=== PATIENT | male | born 1975 | race Two or more races ===

== ENCOUNTER 2018-12-20 09:52 | Inpatient (IN) | payer BC ==
[~2018-12-20] VITALS: Ht 30.5 cm; Wt 81.4 kg
[2018-12-20] MEDS ORDERED: ACETAMINOPHEN 325 MG TAB PO PRN (10:15)
[2018-12-20] MEDS: SODIUM CHLORIDE 0.9% 1,000 ML IV SCH ×2 (10:15→23:12)
[2018-12-20] MEDS ORDERED: ONDANSETRON HCL 4 MG/2 ML VIAL IV PRN (10:15)
[2018-12-20 10:20] VITALS: BP 138/88
[2018-12-20 10:30] VITALS: BP 138/88
[2018-12-20] MEDS ORDERED: LINEZOLID 600MG/300ML 300 ML IV ONE (11:15)
[2018-12-20 11:26] LABS: Basophils # (auto) 0 uL; Basophils % (auto) 0.2 % (0.0-2.0); Eosinophils # (auto) 0.4 uL; Hematocrit 46.9 % (41.0-53.0); Hemoglobin 15.9 g/dL (13.5-17.5); Lymphocytes # (auto) 1.4 uL; Lymphocytes % (auto) 19.9 % (10.0-50.0); Mean Corpuscular Hemoglobin 30.3 pg (28.0-32.0); Mean Corpuscular Hgb Conc. 33.9 g/dL (32.0-36.0); Mean Corpuscular Volume 89.3 fL (80.0-100.0); Monocytes # (auto) 0.5 uL; Monocytes % (auto) 7.1 % (0.0-12.0); Neutrophils # (auto) 4.8 uL; Neutrophils % (auto) 66.8 % (37.0-80.0); Platelet Count (auto) 166 10^3/uL (140-450); Red Blood Cells 5.25 10^6/uL (4.5-5.90); Red Cell Distribution Width 12.7 % (11.8-14.3); White Blood Cell 7.3 10^3/uL (4.4-10.8)
[2018-12-20 11:32] LABS: Albumin 4.4 g/dL (3.4-5.0); Calcium 8.5 mg/dL (8.5-10.1); Potassium 3.9 mmol/L (3.5-5.1)
[2018-12-20 11:38] LABS: BUN/Creatinine Ratio 20.4; Bilirubin, Total 1.3 mg/dL (0.2-1.0); Total Protein 7.2 g/dL (6.4-8.2)
[2018-12-20 13:00] VITALS: BP 138/88
--- NOTE | 2018-12-20 13:00 | NUR ---
WOUND CARE NOTE: Wound care in to see patient per wound care request regarding "Staph Infection, L leg Cellulitis" that are noted present on admission. Patient is 48 years old male with admitting diagnosis of Staph Infection. Patient is resting in bed in Rm[address]. He's awake, alert and fully oriented. Patient denies any pain at this time. He's ambulatory and self turn and reposition. Skin assessment done with the assistance of patient's nurse, CAROLYN Malave. Noted patient has multi/ scattered small, rashes, red lesions to BUE and BLE. His Lt lower leg is worse and has open draining lesions, with bright red nathan wound with minimal serous drainage, no odor noted. Wound culture specimen sent by bedside nurse to lab for processing. Patient reported that he noted "tiny carbuncle like, and ulcerated in about seven to ten days". Cleansed patient's Lt lower leg wounds with wound cleanser, patted dry with sterile gauze. Photograph taken for reference. Applied Thera honey gauze, covered wound with absorbent pad, wrapped with Kerlix and secured with tape as MD ordered. Patient tolerated well. RECOMMENDATION: EOD/PRN dressing change to L lower leg wounds per MD order, redistribute pressure points with pillows, elevate affected extremity on pillows, Continue monitoring by Wound care while patient is hospitalized. Addendum: 12/20/18 at 1638 by Arlette Conklin RN Amended: Links added.
[2018-12-20] MEDS ORDERED: PIPERACILLIN-TAZO 4.5GM 100 ML IV ONE (15:30)
[2018-12-20] MEDS ORDERED: GADOPENTETATE DIMEGLUMINE (10MMOL/20 ML) VIAL IV ONE (15:45)
[2018-12-20 16:47] VITALS: BP 127/78
[2018-12-20] MEDS: LINEZOLID 600MG/300ML 300 ML IV SCH (21:03)
[2018-12-20] MEDS: diphenhdrAMINE HCL 25 MG CAP PO PRN (21:04)
[2018-12-20 22:00] VITALS: BP 107/65
[2018-12-20] MEDS: PIPERACILLIN-TAZO 4.5GM 100 ML IV SCH (23:12)
[2018-12-21 05:00] VITALS: BP 111/65
[2018-12-21] MEDS: PIPERACILLIN-TAZO 4.5GM 100 ML IV SCH ×2 (05:55→14:30)
[2018-12-21 09:00] VITALS: BP 115/74
--- NOTE | 2018-12-21 09:00 | NUR ---
SURGICAL CONSULT TO BE DONE BY Reese LORA PER MD REYES. WILL FOLLOW THROUGH WITH NEW ORDERS.
[2018-12-21] MEDS: LINEZOLID 600MG/300ML 300 ML IV SCH ×2 (10:09→22:24)
--- NOTE | 2018-12-21 10:15 | NUR ---
CALLED [employer] FOR 2MM PUNCH KIT PER MD LORA REQUEST, AWAITING CALL BACK.
--- NOTE | 2018-12-21 11:30 | NUR ---
SPOKE WITH [employer] JESUSITA, STATED PUNCH KIT (PER MD REQUEST) WOULD NEED TO BE ORDERED ON SUNDAY. WILL INFORM NEXT SHIFT.
--- NOTE | 2018-12-21 14:20 | NUR ---
MD RAZA UPDATED ON PATIENT STATUS VIA TELEPHONE. TRANSFERRED TO PATIENT ROOM PHONE PER REQUEST TO SPEAK WITH PATIENT. NO NEW ORDERS. WILL CONTINUE CARE.
--- NOTE | 2018-12-21 14:40 | NUR ---
WOUND CARE ORDERED PATIENT TOLERATED WELL. NO S/S OF DISTRESS. WILL CONTINUE CARE.
[2018-12-21] MEDS: SODIUM CHLORIDE 0.9% 1,000 ML IV SCH (14:51)
[2018-12-21 15:10] LABS: Urine Bacteria NONE SEEN /hpf (None Seen); Urine Blood Negative /uL (Negative); Urine Specific Gravity 1.009 (1.001-1.035); Urine WBC 1 /hpf (0 - 3)
[2018-12-21] MEDS: diphenhdrAMINE HCL 25 MG CAP PO PRN (16:46)
[2018-12-21 17:00] VITALS: BP 106/61
--- NOTE | 2018-12-21 19:06 | NUR ---
CLOSING NOTE ENDORSED CARE TO [employer] CRANE OPERATOR RN. PATIENT IN BED LOW LOCK POSITION, CALL LIGHT IN REACH. NO S/S OF DISTRESS.
--- NOTE | 2018-12-21 19:50 | NUR ---
TALKED TO DR. REYES. STOPPED THE ZOSYN. PT STATED THAT HE FELT ITCHY WITH THE ZOSYN.
[2018-12-21 21:15] VITALS: BP 124/73
[2018-12-22] MEDS: SODIUM CHLORIDE 0.9% 1,000 ML IV SCH (05:09)
[2018-12-22 05:22] VITALS: BP 106/66
[2018-12-22 06:07] LABS: Basophils # (auto) 0 uL; Basophils % (auto) 0.3 % (0.0-2.0); Eosinophils # (auto) 0.5 uL; Eosinophils % (auto) 8.4 % (0.0-7.0); Hematocrit 43.2 % (41.0-53.0); Lymphocytes # (auto) 1.7 uL; Lymphocytes % (auto) 30.1 % (10.0-50.0); Mean Corpuscular Hemoglobin 30.7 pg (28.0-32.0); Mean Corpuscular Hgb Conc. 34.7 g/dL (32.0-36.0); Mean Corpuscular Volume 88.3 fL (80.0-100.0); Monocytes # (auto) 0.4 uL; Monocytes % (auto) 7.6 % (0.0-12.0); Neutrophils % (auto) 53.6 % (37.0-80.0); Nucleated Red Blood Cells % 0.1 %; Platelet Count (auto) 137 10^3/uL (140-450); Red Blood Cells 4.89 10^6/uL (4.5-5.90); Red Cell Distribution Width 12.9 % (11.8-14.3); White Blood Cell 5.5 10^3/uL (4.4-10.8)
[2018-12-22 06:16] LABS: Albumin 3.6 g/dL (3.4-5.0); BUN/Creatinine Ratio 14.6; Calcium 8.3 mg/dL (8.5-10.1); Potassium 3.7 mmol/L (3.5-5.1)
[2018-12-22 06:18] LABS: Bilirubin, Total 0.7 mg/dL (0.2-1.0); Total Protein 6.2 g/dL (6.4-8.2)
[2018-12-22 08:26] VITALS: BP 114/70
[2018-12-22] MEDS: LINEZOLID 600MG/300ML 300 ML IV SCH (09:32)
--- NOTE | 2018-12-22 09:55 | NUR ---
SPOKE WITH MD LORA VIA TELEPHONE NEW ORDERS FOR LIDOCAINE 1%. ORDER READ BACK AND VERIFIED. WILL CONTINUE CARE.
[2018-12-22] MEDS ORDERED: LIDOCAINE 1% HCL (LOCAL ANESTH.) INJ 20ML MDV ID ONE (10:00)
[2018-12-22] MEDS ORDERED: LIDOCAINE 1% (LOCAL ANESTH.) PF 5ml SDV ONE (10:02)
--- NOTE | 2018-12-22 10:30 | NUR ---
SKIN BIOPSY CONSENTS SIGNED AND PLACED IN CHART. MD LORA AT BEDSIDE. LIDOCAINE ADMINISTERED BY . 2 BIOPSIES TAKEN FROM LEFT POWELL, 1 BIOPSY TAKEN FROM RIGHT CALF IN A STERILE MANNER. PATIENT TOLERATED WELL. NO S/S OF DISTRESS.
--- NOTE | 2018-12-22 10:45 | NUR ---
AMY AT BEDSIDE. NO NEW ORDERS. WILL CONTINUE CARE.
--- NOTE | 2018-12-22 11:00 | NUR ---
SKIN BIOPSY SENT TO LAB WITH PATHOLOGY REQUISITION, COPIES PLACED IN CHART.
[2018-12-22] MEDS ORDERED: predniSONE 20 MG TAB PO ONE (12:15)
[2018-12-22 12:17] VITALS: BP 114/70
--- NOTE | 2018-12-22 12:30 | NUR ---
Discharge instructions given as ordered. Encourage to follow up with PMD as instructed. All questions and concerns addressed. Patient verbalized understanding. Wound pictures taken. Medication reconciliation form completed and copy given to patient. IV removed with catheter intact, pressure dressing applied. Patient ambulated with steady gait to vehicle via wheelchair with all personal belongings, accompanied by friend. No distress noted at time of departure.
== END 2018-12-22 12:30 | disposition home or self-care (01) | DRG 603 ==
LOC: CENTRAL 09:52
PROVIDERS: ADMIT Internal Medicine; ATTEND Internal Medicine
PROC: 0HBLXZX Excision of Left Lower Leg Skin, External Approach, Diagnostic (ICD-10-PCS; principal; 2018-12-22)
PROC: 0HBKXZX Excision of Right Lower Leg Skin, External Approach, Diagnostic (ICD-10-PCS; 2018-12-22)
DX: L03.116 Cellulitis of left lower limb (principal); M34.9 Systemic sclerosis, unspecified; S80.862A Insect bite (nonvenomous), left lower leg, initial encounter; W57.XXXA Bitten or stung by nonvenomous insect and other nonvenomous arthropods, initial encounter; L27.0 Generalized skin eruption due to drugs and medicaments taken internally; L95.9 Vasculitis limited to the skin, unspecified
CPT/HCPCS: 36415; 73718; 80053; 81001; 83520; 85025; 86225; 86235; 86256; 87040; 87077; 87081; 87186; 87205; 93306; 93971; G0378; J2543

== ENCOUNTER → 2020-07-08 | Outpatient (CLI) | payer BC | END | disposition home or self-care (01) | LOC: LAB 13:17 | PROVIDERS: ATTEND Internal Medicine | DX: Z20.828 Contact with and (suspected) exposure to other viral communicable diseases (principal) | CPT/HCPCS: 36415; 87426; C9803; U0003 ==

== ENCOUNTER 2023-08-07 10:00 | Inpatient (IN) | payer BC ==
[~2023-08-07] VITALS: Ht 175.3 cm; Wt 94.1 kg
[2023-08-07 12:46] VITALS: BP 121/79; PULSE 96; RESP 19; TEMP 98.3; O2SAT 97
[2023-08-07 13:00] VITALS: BP 140/86; PULSE 95; RESP 18; TEMP 98.3; O2SAT 96
[2023-08-07] MEDS ORDERED: diphenhdrAMINE HCL 25 MG CAP PO PRN (13:00)
[2023-08-07] MEDS ORDERED: FAMOTIDINE 20 MG TAB PO ONE (13:00)
[2023-08-07] MEDS: ceFAZolin 1GM/50ML 50 ML IV SCH ×2 (15:32→22:22)
[2023-08-07 15:33] LABS: Basophils # (auto) 0 10 ^3/uL (0-0.2); Basophils % (auto) 0.4 % (0.0-2.0); Eosinophils # (auto) 0.8 10 ^3/uL (0-0.8); Eosinophils % (auto) 12.4 % (0.0-7.0); Hematocrit 45.8 % (41.0-53.0); Lymphocytes # (auto) 1.9 10 ^3/uL (0.4-5.4); Lymphocytes % (auto) 28.2 % (10.0-50.0); Mean Corpuscular Hemoglobin 30.7 pg (28.0-32.0); Mean Corpuscular Hgb Conc. 34.8 g/dL (32.0-36.0); Mean Corpuscular Volume 88.1 fL (80.0-100.0); Monocytes # (auto) 0.5 10 ^3/uL (0-1.3); Monocytes % (auto) 7.2 % (0.0-12.0); Neutrophils # (auto) 3.4 10 ^3/uL (1.6-8.6); Neutrophils % (auto) 51.8 % (37.0-80.0); Nucleated Red Blood Cells % 0.3 %; Red Cell Distribution Width 13.2 % (11.8-14.3); White Blood Cell 6.6 10^3/uL (4.4-10.8)
[2023-08-07 15:36] LABS: INR 1.05 (0.9-1.15); Partial Thromboplastin Time 28.1 SEC (24.5-34.5)
[2023-08-07 15:38] LABS: Alanine Aminotransferase 38 U/L (7-40); Albumin 4.1 g/dL (3.2-4.8); Alkaline Phosphatase 57 U/L (46-116); Anion Gap 5 (5-15); Aspartate Aminotransferase 25 U/L (13-40); BUN/Creatinine Ratio 9.9 (10.0-20.0); Bilirubin, Total 0.6 mg/dL (0.2-1.0); Blood Urea Nitrogen 11 mg/dL (9-23); CRP High Sensitivity 0.13 mg/dL (<1.0); Calcium 8.9 mg/dL (8.5-10.1); Carbon Dioxide 28 mmol/L (20-30); Chloride 108 mmol/L (98-107); Glucose 89 mg/dL (74-106); Potassium 3.8 mmol/L (3.5-5.1); Sodium 141 mmol/L (136-145)
[2023-08-07 15:57] VITALS: BP 121/74; PULSE 96; RESP 19; TEMP 98.3; O2SAT 97
[2023-08-07 15:59] LABS: Erythrocyte Sedimentation Rate 2 mm/hr (0-20)
[2023-08-07 17:00] VITALS: BP 123/65; PULSE 89; RESP 20; TEMP 98.1; O2SAT 97
[2023-08-07 17:07] LABS: Urine Bacteria NONE SEEN /hpf (None Seen); Urine Blood Negative /uL (Negative); Urine Clarity Clear (Clear); Urine Color Colorless (Yellow); Urine Protein, UAD Negative (Negative); Urine Specific Gravity 1.007 (1.001-1.035); Urine Urobilinogen Normal (Negative); Urine WBC 1 /hpf (0 - 3)
[2023-08-07 22:00] VITALS: BP 132/78; PULSE 81; RESP 18; TEMP 97.7; O2SAT 96
[2023-08-07] MEDS: FAMOTIDINE 20 MG TAB PO SCH (22:22)
[2023-08-08] MEDS ORDERED: HYDROCORTONE 1% TOPICAL CREAM 30 GM TUBE TOP SCH (03:15)
[2023-08-08 05:00] VITALS: BP 142/78; PULSE 77; RESP 18; TEMP 98.1; O2SAT 96
[2023-08-08 07:07] LABS: Immunoglobulin A 100 mg/dL (90-386)
[2023-08-08 08:00] VITALS: PULSE 81; RESP 20; O2SAT 97
[2023-08-08] MEDS: ceFAZolin 2 GM/D5W100ml 100 ML IV SCH ×3 (08:50→22:17)
[2023-08-08 09:00] VITALS: BP 120/64; PULSE 81; RESP 20; TEMP 97.7; O2SAT 97
[2023-08-08] MEDS: FAMOTIDINE 20 MG TAB PO SCH ×2 (10:03→22:17)
[2023-08-08 17:00] VITALS: BP 130/74; PULSE 73; RESP 20; TEMP 98.1; O2SAT 97
[2023-08-08 20:00] VITALS: PULSE 86; RESP 18; O2SAT 99
[2023-08-08 22:00] VITALS: BP 155/84; PULSE 86; RESP 18; TEMP 98.4; O2SAT 99
[2023-08-09] VITALS (7 sets, daily range): BP systolic 109–133; BP diastolic 63–83; PULSE 72–106; RESP 14–20; TEMP 97.5–98.4; O2SAT 95–98
[2023-08-09] MEDS: ceFAZolin 2 GM/D5W100ml 100 ML IV SCH ×3 (05:52→23:02)
[2023-08-09] MEDS ORDERED: LIDOCAINE W/ EPINEPHRINE 2% INJ 20ML VIAL ONE (07:10)
[2023-08-09] MEDS ORDERED: BUPIVACAINE HCL 50 ML ONE (07:11)
[2023-08-09] MEDS ORDERED: MEPERIDINE HCL (25 MG/ML) 1ML VIAL ONE (09:25)
[2023-08-09] MEDS ORDERED: MIDAZOLAM HCL 2MG/2ML 2ml VIAL (1mg/ml) ONE (09:26)
[2023-08-09] MEDS ORDERED: fentaNYL CITRATE 100 MCG/2 ML VL ONE (09:26)
[2023-08-09 09:30] LABS: Hepatitis B Surface Antigen Negative (Negative)
[2023-08-09] MEDS ORDERED: PROPOFOL 10 MG/ML 20 ML IV ONE (09:44)
[2023-08-09] MEDS ORDERED: DexAMETHasone SOD PHOS 10MG/1ML VIAL INJ ONE (09:44)
[2023-08-09 09:50] LABS: Hepatitis A Ab IgM Negative
[2023-08-09 09:51] LABS: Hepatitis B Core IgM Negative
[2023-08-09 09:52] LABS: Hepatitis C Antibody Negative (Negative)
[2023-08-09] MEDS ORDERED: HYDROmorphone HCL 2 MG/ML VL/or syr IV PRN (10:00)
[2023-08-09] MEDS ORDERED: KETOROLAC TROMETH 30 MG/ML 1ML VIAL IV ONE (10:00)
[2023-08-09] MEDS ORDERED: MIDAZOLAM HCL 2MG/2ML 2ml VIAL (1mg/ml) IV PRN (10:00)
[2023-08-09] MEDS ORDERED: ONDANSETRON HCL 4 MG/2 ML VIAL IV PRN (10:00)
[2023-08-09] MEDS ORDERED: MORPHINE SULFATE 4 MG/ML SYR/VIAL IV PRN (10:00)
[2023-08-09] MEDS ORDERED: LABETALOL HCL 5 MG/ML 4ML SYRINGE IV PRN (10:00)
[2023-08-09] MEDS ORDERED: ePHEDrine SULFATE 50 MG/ML AMP IV PRN (10:00)
[2023-08-09] MEDS: FAMOTIDINE 20 MG TAB PO SCH ×2 (10:00→23:01)
[2023-08-09 14:01] LABS: Basophils # (auto) 0 10 ^3/uL (0-0.2); Basophils % (auto) 0.2 % (0.0-2.0); Eosinophils # (auto) 0.1 10 ^3/uL (0-0.8); Eosinophils % (auto) 1.1 % (0.0-7.0); Hemoglobin 17.8 g/dL (13.5-17.5); Mean Corpuscular Volume 87.6 fL (80.0-100.0); Neutrophils # (auto) 5.7 10 ^3/uL (1.6-8.6); White Blood Cell 6.8 10^3/uL (4.4-10.8)
[2023-08-09 14:02] LABS: Lymphocytes % (auto) 13.9 % (10.0-50.0); Mean Corpuscular Hemoglobin 30.5 pg (28.0-32.0); Mean Corpuscular Hgb Conc. 34.8 g/dL (32.0-36.0); Monocytes # (auto) 0.1 10 ^3/uL (0-1.3); Monocytes % (auto) 1.5 % (0.0-12.0); Neutrophils % (auto) 83.3 % (37.0-80.0); Nucleated Red Blood Cells % 0.3 %; Red Blood Cells 5.83 10^6/uL (4.5-5.90); Red Cell Distribution Width 12.6 % (11.8-14.3)
[2023-08-10 05:00] VITALS: BP 125/66; PULSE 82; RESP 16; TEMP 97.9; O2SAT 100
[2023-08-10 05:07] LABS: Endomysial IgA Antibody Negative (Negative)
[2023-08-10 06:06] LABS: t-Transglutaminase (tTG) IgA <2 U/mL (0-3)
[2023-08-10] MEDS: ceFAZolin 2 GM/D5W100ml 100 ML IV SCH ×2 (06:31→13:27)
[2023-08-10 08:00] VITALS: BP 100/63; PULSE 83; RESP 19; TEMP 98; O2SAT 99
[2023-08-10 08:20] VITALS: BP 100/63; PULSE 83; RESP 19; TEMP 98; O2SAT 99
[2023-08-10 09:33] LABS: Basophils # (auto) 0 10 ^3/uL (0-0.2); Basophils % (auto) 0.2 % (0.0-2.0); Eosinophils # (auto) 0 10 ^3/uL (0-0.8); Eosinophils % (auto) 0.3 % (0.0-7.0); Hematocrit 44.8 % (41.0-53.0); Hemoglobin 15.7 g/dL (13.5-17.5); Lymphocytes # (auto) 0.9 10 ^3/uL (0.4-5.4); Lymphocytes % (auto) 10.1 % (10.0-50.0); Mean Corpuscular Hemoglobin 30.8 pg (28.0-32.0); Monocytes # (auto) 0.4 10 ^3/uL (0-1.3); Monocytes % (auto) 4.4 % (0.0-12.0); Neutrophils # (auto) 7.1 10 ^3/uL (1.6-8.6); Nucleated Red Blood Cells % 0.1 %; Red Blood Cells 5.09 10^6/uL (4.5-5.90); Red Cell Distribution Width 12.6 % (11.8-14.3); White Blood Cell 8.4 10^3/uL (4.4-10.8)
[2023-08-10 09:54] LABS: Alanine Aminotransferase 27 U/L (7-40); Alkaline Phosphatase 48 U/L (46-116); Anion Gap 5 (5-15); Aspartate Aminotransferase 23 U/L (13-40); BUN/Creatinine Ratio 11.3 (10.0-20.0); Bilirubin, Total 0.9 mg/dL (0.2-1.0); Blood Urea Nitrogen 13 mg/dL (9-23); Calcium 9.1 mg/dL (8.5-10.1); Carbon Dioxide 30 mmol/L (20-30); Chloride 104 mmol/L (98-107); Glucose 128 mg/dL (74-106); Potassium 3.4 mmol/L (3.5-5.1); Sodium 139 mmol/L (136-145); Total Protein 5.9 g/dL (5.7-8.2)
[2023-08-10] MEDS: FAMOTIDINE 20 MG TAB PO SCH (09:58)
[2023-08-10] MEDS ORDERED: CEPH500T PO (11:39)
[2023-08-10 12:30] VITALS: BP 139/81; PULSE 80; RESP 19; TEMP 98; O2SAT 99
[2023-08-10 13:32] VITALS: BP 139/81; PULSE 80; RESP 19; TEMP 98; O2SAT 99
[2023-08-10 14:06] LABS: Immunoglobulin E 111 IU/mL (6-495)
[2023-08-10] MEDS ORDERED: INFLUENZA QUAD 2023-2024 0.5 ML SYRG IM ONE (14:13)
[2023-08-10] MEDS: INFLUENZA QUAD 2023-2024 0.5 ML SYRG IM ONE ×2 (14:16→14:50)
== END 2023-08-10 15:12 | disposition home or self-care (01) | DRG 607 ==
LOC: WEST WING 12:10 → EEVIPCON 12:10
PROVIDERS: ADMIT Internal Medicine; ATTEND Internal Medicine
PROC: 0HBBXZX Excision of Right Upper Arm Skin, External Approach, Diagnostic (ICD-10-PCS; 2023-08-09)
PROC: 0HB7XZX Excision of Abdomen Skin, External Approach, Diagnostic (ICD-10-PCS; principal; 2023-08-09 09:32)
DX: R21 Rash and other nonspecific skin eruption (principal); L29.9 Pruritus, unspecified; L01.00 Impetigo, unspecified; B95.8 Unspecified staphylococcus as the cause of diseases classified elsewhere; Z82.49 Family history of ischemic heart disease and other diseases of the circulatory system; Z83.3 Family history of diabetes mellitus
CPT/HCPCS: 36415; 80053; 80074; 81001; 82784; 82785; 83516; 84443; 85025; 85610; 85652; 85730; 86141; 86255; 86703; 87040; 87081; 87205; 90686; G0378; J1100; J2250; J2704; J3490